=== PATIENT | female | born 1950 ===

== ENCOUNTER 2017-02-09 17:10 | Emergency (ER) | payer MEDICARE ==
[2017-02-09 17:11] VITALS: BMI 35.5
[2017-02-09] MEDS ORDERED: Sodium Chloride 0.9% 1,000 ML IV ONE (18:00)
[2017-02-09 18:25] LABS: BASO % 0.5 % (0.0-2.0); EOS # 0.1 K/uL (0.0-0.7); EOS % 0.8 % (0.0-4.0); HEMATOCRIT 40.7 % (34.0-47.0); LYMPH # 2.8 K/uL (1.0-4.3); LYMPH % 32.8 % (20.0-40.0); MEAN CELL VOLUME 87.7 fL (81.0-99.0); MEAN CORPUSCULAR HEMOGLOBIN 28.8 pg (27.0-31.0); MEAN CORPUSCULAR HGB CONC 32.8 g/dL (33.0-37.0); MONO # 0.6 K/uL (0.0-0.8); MONO % 7.4 % (0.0-10.0); NRBC % 0.1 % (0.0-2.0); RED CELL DISTRIBUTION WIDTH 13.1 % (11.5-14.5); WHITE BLOOD COUNT 8.5 K/uL (4.8-10.8)
--- NOTE | 2017-02-09 18:27 | C.PDOC ---
History Of Present Illness 66 year old female, with a history of HTN and DM, presents to the emergency room with complaints of nausea and high blood sugar for the last 5 days. Patient 's sugar was in the 300s at home. pt reports she has had a dry cough "for a while" Patient denies fever, chills, nausea, vomiting, or any other complaints. Time Seen by Provider: 02/09/17 17:56 Chief Complaint (Nursing): GI Problem History Per: Patient History/Exam Limitations: no limitations Onset/Duration Of Symptoms: Days (5) Current Symptoms Are (Timing): Still Present Severity: Mild Recent travel outside of the [place]: No Past Medical History Reviewed: Historical Data, Nursing Documentation, Vital Signs Vital Signs: Last Vital Signs Temp 97.6 F 02/09/17 20:25 Pulse 74 02/09/17 20:25 Resp 20 02/09/17 20:25 BP 106/70 02/09/17 20:25 Pulse Ox 98 02/09/17 20:25 - Medical History PMH: Bipolar Disorder, Depression, Diabetes, HTN, Hypercholesterolemia Denies: Chronic Kidney Disease - [facility] Procedures CLOSED ENDOSCOPIC BIOPSY OF LARGE INTESTINE (01/27/14) Family History: States: Unknown Family Hx - Social History Hx Tobacco Use: No Hx Alcohol Use: No Hx Substance Use: No - Immunization History Hx Tetanus Toxoid Vaccination: No Hx Influenza Vaccination: No Hx Pneumococcal Vaccination: No Review Of Systems Except As Marked, All Systems Reviewed And Found Negative. Constitutional: Positive for: Other (High blood sugar (in the 300s)). Negative for: Fever, Chills Gastrointestinal: Positive for: Nausea. Negative for: Vomiting, Diarrhea Physical Exam - Physical Exam Appears: Non-toxic, Other (Morbidly obese) Skin: Warm, Dry, No Rash Head: Atraumatic, Normacephalic Eye(s): bilateral: Normal Inspection Oral Mucosa: Moist Cardiovascular: Rhythm Regular Respiratory: Normal Breath Sounds, No Rales, No Rhonchi, No Wheezing Gastrointestinal/Abdominal: Soft, No Tenderness, No Guarding, No Rebound Extremity: Normal ROM, No Tenderness Neurological/Psych: Oriented x3, Normal Speech, Normal Cognition Gait: Steady ED Course And Treatment - Laboratory Results Result Diagrams: 02/09/17 18:17 02/09/17 18:17 O2 Sat by Pulse Oximetry: 100 Medical Decision Making Medical Decision Making: r/o dka - r/o underlying etiology of eleevated bgm - r/o infection Plan: -- EKG -- CXR -- Labs -- Zofran 750 cxr ?opacity to left lower side, poor study. will d/c with levaquin to cover urine as well. pt states feels better for d/c. abd soft no ttp notified about incidental elevated lfts. no abdominal pain Disposition - Disposition Disposition: HOSPITALIZED Disposition Time: 19:52 Condition: STABLE Additional Instructions: please follow up with your doctor. return to er with worsening symptoms or concerns. Prescriptions: levoFLOXacin [Levaquin] 750 mg PO DAILY #7 tab Instructions: Urinary Tract Infection in Women (ED), Diabetic Hyperglycemia (ED ) - Clinical Impression Clinical Impression: Hyperglycemia, Nausea & vomiting, UTI (urinary tract infection) - Scribe Statement The provider has reviewed the documentation as recorded by the Scribgeorgina Huerta All medical record entries made by the Johnibgeorgina were at my direction and personally dictated by me. I have reviewed the chart and agree that the record accurately reflects my personal performance of the history, physical exam, medical decision making, and the department course for this patient. I have also personally directed, reviewed, and agree with the discharge instructions and disposition.
[2017-02-09 18:44] LABS: CHLORIDE 98 mmol/L (98-107)
[2017-02-09 18:45] LABS: POTASSIUM 4.4 mmol/L (3.6-5.2); SODIUM 137 mmol/L (132-148)
[2017-02-09 18:46] LABS: INR 1.1
[2017-02-09 18:47] LABS: ALB/GLOB RATIO 1.2 (1.0-2.1); ALKALINE PHOSPHATASE 67 U/L (38-126); AST/SGOT 63 U/L (14-36); BILIRUBIN,TOTAL 0.7 mg/dL (0.2-1.3); BLOOD UREA NITROGEN 22 mg/dL (7-17); CARBON DIOXIDE 21 mmol/L (22-30); GFR AFRICAN-AMERICAN > 60; TOTAL PROTEIN 8.4 g/dL (6.3-8.3)
[2017-02-09 18:48] LABS: ALT/SGPT 63 U/L (9-52); CALCIUM 10.2 mg/dl (8.6-10.4); GLUCOSE,RANDOM 286 mg/dL (65-105)
[2017-02-09 19:34] LABS: RBC URINE 5 /hpf (0-3); URINE BACTERIA FEW (<OCC); URINE BILIRUBIN NEGATIVE (NEGATIVE); URINE BLOOD NEGATIVE (NEGATIVE); URINE COLOR Yellow (YELLOW); URINE GLUCOSE (UA) 2+ mg/dL (Normal); URINE KETONE TRACE mg/dL (NEGATIVE); URINE LEUKOCYTE ESTERASE 1+ Leu/uL (Negative); URINE PROTEIN NEGATIVE (NEGATIVE); URINE UROBILINOGEN NORMAL mg/dL (0.2-1.0); WBC URINE 9 /hpf (0-5)
[2017-02-09 20:25] VITALS: BP 106/70; PULSE 74; RESP 20; TEMP 97.6
--- NOTE | 2017-02-10 08:03 | RAD ---
PROCEDURE: CHEST RADIOGRAPH, 1 VIEW HISTORY: Abdominal pain COMPARISON: None available. FINDINGS: LUNGS: Mild venous congestion. Patchy left basilar airspace opacity. PLEURA: No pneumothorax or pleural fluid seen. CARDIOVASCULAR: Normal. OSSEOUS STRUCTURES: No significant abnormalities. VISUALIZED UPPER ABDOMEN: Normal. OTHER FINDINGS: None. IMPRESSION: Mild venous congestion. Patchy left basilar airspace opacity.
[2017-02-12 07:34] VITALS: O2SAT 100
== END 2017-02-09 20:25 | disposition short-term general hospital (02) ==
LOC: C.ER 17:10
DX: N39.0 Urinary tract infection, site not specified (principal); E11.65 Type 2 diabetes mellitus with hyperglycemia
CPT/HCPCS: 71010; 80053; 81001; 82948; 83690; 84484; 85025; 85610; 85730; 96361; 96374; 99284; J2405; J7040

== ENCOUNTER 2017-03-06 17:45 | Emergency (ER) | payer MEDICARE ==
[2017-03-06 17:45] VITALS: BMI 35.5
[2017-03-06] MEDS ORDERED: Sodium Chloride 0.9% 1,000 ML IV ONE (20:26)
[2017-03-06 20:30] LABS: BASO % 0.3 % (0.0-2.0); EOS # 0.1 K/uL (0.0-0.7); HEMATOCRIT 39.3 % (34.0-47.0); LYMPH # 2.5 K/uL (1.0-4.3); LYMPH % 38.2 % (20.0-40.0); MEAN CELL VOLUME 89.6 fL (81.0-99.0); MEAN CORPUSCULAR HEMOGLOBIN 28.3 pg (27.0-31.0); MEAN CORPUSCULAR HGB CONC 31.6 g/dL (33.0-37.0); MEAN PLATELET VOLUME 9.2 fL (7.2-11.7); MONO # 0.7 K/uL (0.0-0.8); MONO % 10.3 % (0.0-10.0); NRBC % 0.1 % (0.0-2.0); WHITE BLOOD COUNT 6.7 K/uL (4.8-10.8)
[2017-03-06 20:51] LABS: RBC URINE 83 /hpf (0-3); URINE BACTERIA OCC (<OCC); URINE BILIRUBIN NEGATIVE (NEGATIVE); URINE BLOOD 2+ (NEGATIVE); URINE COLOR Yellow (YELLOW); URINE GLUCOSE (UA) 3+ mg/dL (Normal); URINE KETONE 1+ mg/dL (NEGATIVE); URINE LEUKOCYTE ESTERASE TRACE Leu/uL (Negative); URINE PROTEIN 1+ mg/dL (NEGATIVE); URINE UROBILINOGEN NORMAL mg/dL (0.2-1.0); WBC URINE 10 /hpf (0-5)
[2017-03-06 21:01] LABS: CHLORIDE 103 mmol/L (98-107); POTASSIUM 3.9 mmol/L (3.6-5.2); SODIUM 138 mmol/L (132-148)
[2017-03-06 21:04] LABS: ALB/GLOB RATIO 1.2 (1.0-2.1); ALKALINE PHOSPHATASE 73 U/L (38-126); ALT/SGPT 37 U/L (9-52); AST/SGOT 44 U/L (14-36); BILIRUBIN,TOTAL 0.4 mg/dL (0.2-1.3); BLOOD UREA NITROGEN 12 mg/dL (7-17); CALCIUM 9.2 mg/dl (8.6-10.4); CARBON DIOXIDE 19 mmol/L (22-30); GFR AFRICAN-AMERICAN > 60; GLUCOSE,RANDOM 288 mg/dL (65-105); TOTAL PROTEIN 7.8 g/dL (6.3-8.3)
--- NOTE | 2017-03-06 22:04 | C.PDOC ---
Time Seen by Provider: 03/06/17 20:18 Chief Complaint (Nursing): High Blood Sugar History Per: Patient Onset/Duration Of Symptoms: Days (1) Current Symptoms Are (Timing): Still Present Severity: Moderate Current Diabetic Medications: Oral Medication Causative (Exacerbating) Factor(s): Missed Taking Medication (Ran out of her Glipizide yesterday) Associated Infectious Symptoms: Urinary Frequency Treatment Prior To Provider Evaluation: Accucheck Additional History Per: Prior Records Past Medical History Reviewed: Historical Data, Nursing Documentation, Vital Signs Vital Signs: Last Vital Signs Temp 97.9 F 03/06/17 18:01 Pulse 110 H 03/06/17 18:01 Resp 18 03/06/17 18:01 BP 153/89 H 03/06/17 18:01 Pulse Ox 96 03/06/17 18:01 - Medical History PMH: Bipolar Disorder, Depression, Diabetes, HTN, Hypercholesterolemia - [facility] Procedures CLOSED ENDOSCOPIC BIOPSY OF LARGE INTESTINE (01/27/14) Family History: States: Unknown Family Hx - Social History Hx Tobacco Use: No Hx Alcohol Use: No Hx Substance Use: No - Immunization History Hx Tetanus Toxoid Vaccination: No Hx Influenza Vaccination: No Hx Pneumococcal Vaccination: No Review Of Systems Except As Marked, All Systems Reviewed And Found Negative. Constitutional: Negative for: Fever Cardiovascular: Negative for: Chest Pain Respiratory: Negative for: Shortness of Breath Gastrointestinal: Negative for: Vomiting, Abdominal Pain, Diarrhea Genitourinary: Negative for: Dysuria Musculoskeletal: Negative for: Neck Pain Skin: Negative for: Rash Neurological: Negative for: Weakness, Numbness, Seizures, Altered Mental Status Physical Exam - Physical Exam Appears: Non-toxic, No Acute Distress Skin: Normal Color, Warm, Dry, No Rash Head: Atraumatic, Normacephalic Eye(s): bilateral: PERRL, EOMI Neck: Normal ROM, Supple Cardiovascular: Rhythm Regular Respiratory: Normal Breath Sounds, No Accessory Muscle Use Gastrointestinal/Abdominal: Soft, No Tenderness Back: No CVA Tenderness Extremity: Normal ROM Neurological/Psych: Oriented x3, Normal Motor, Normal Sensation ED Course And Treatment - Laboratory Results Result Diagrams: 03/06/17 20:23 03/06/17 20:23 O2 Sat by Pulse Oximetry: 96 Pulse Ox Interpretation: Normal Progress - Interventions Interventions:: Observation, Intravenous fluid - Data Reviewed Data Reviewed: Lab, Old records - Patient Status Patient status: Mostly improved - Continuity of Care Discussed patient case with:: Patient, Family-HIPPA compliant, ED Nurse - Patient Plan Patient Plan: Discharge, F/U with PCP, Continue present meds Disposition Counseled Patient/Family Regarding: Studies Performed, Diagnosis, Need For Followup, Rx Given - Disposition Referrals: Tay Menendez MD [Non-Staff] - Disposition: HOME/ ROUTINE Disposition Time: 22:04 Condition: IMPROVED Additional Instructions: Follow up with your doctor for further evaluation and treatment. Return to the ER if you develop worsening of symptoms or if you have any other concerns. Prescriptions: Glipizide [Glipizide ER] 5 mg PO DAILY #30 ter Instructions: Diabetes Mellitus Type 2 in Adults (ED) Print Language: ENGLISH - Clinical Impression Clinical Impression: Uncontrolled diabetes mellitus
[2017-03-06 22:24] VITALS: BP 144/99; PULSE 88; RESP 20; TEMP 97.6; O2SAT 98
== END 2017-03-06 22:24 | disposition home or self-care (01) ==
LOC: C.ER 17:45
DX: E11.65 Type 2 diabetes mellitus with hyperglycemia (principal); Z79.84 Long term (current) use of oral hypoglycemic drugs
CPT/HCPCS: 80053; 81001; 82948; 85025; 96360; 99285; J7040

== ENCOUNTER 2017-12-15 23:01 | Emergency (ER) | payer MEDICARE ==
[2017-12-15 23:01] VITALS: BMI 35.5
[2017-12-16] MEDS ORDERED: Sodium Chloride 0.9% 1,000 ML IV ONE (00:51)
--- NOTE | 2017-12-16 00:57 | C.PDOC ---
History Of Present Illness 67 y/o female presents to the emergency department complaining of severe nausea and generalized weakness since 8pm. Also reports cough for 1 month. Checked blood sugar at home and states it was okay. Otherwise denies any chest pain, shortness of breath, fevers, chills, diarrhea, change in bowel movements. Time Seen by Provider: 12/15/17 23:22 Chief Complaint (Nursing): GI Problem History Per: Patient History/Exam Limitations: no limitations Past Medical History Reviewed: Historical Data, Nursing Documentation, Vital Signs Vital Signs: Last Vital Signs Temp 97.5 F L 12/16/17 05:25 Pulse 85 12/16/17 05:25 Resp 19 12/16/17 05:25 BP 124/85 12/16/17 05:25 Pulse Ox 98 12/16/17 05:25 - Medical History PMH: Bipolar Disorder, Depression, Diabetes, HTN, Hypercholesterolemia Denies: Chronic Kidney Disease - [facility] Procedures CLOSED ENDOSCOPIC BIOPSY OF LARGE INTESTINE (01/27/14) Family History: States: Unknown Family Hx - Social History Hx Tobacco Use: No Hx Alcohol Use: No Hx Substance Use: No - Immunization History Hx Tetanus Toxoid Vaccination: No Hx Influenza Vaccination: Yes Hx Pneumococcal Vaccination: Yes Review Of Systems Except As Marked, All Systems Reviewed And Found Negative. Constitutional: Positive for: Weakness (generalized). Negative for: Fever, Chills, Malaise, Weight loss Eyes: Negative for: Pain, Vision Change ENT: Negative for: Ear Pain, Ear Discharge, Nose Congestion, Mouth Pain Cardiovascular: Negative for: Chest Pain, Palpitations, Orthopnea, Edema Respiratory: Positive for: Cough, SOB with Excertion. Negative for: Shortness of Breath Gastrointestinal: Positive for: Nausea. Negative for: Diarrhea, Constipation, Melena Genitourinary: Negative for: Dysuria, Frequency, Hematuria Musculoskeletal: Negative for: Neck Pain, Shoulder Pain, Arm Pain Skin: Negative for: Rash Neurological: Negative for: Weakness Psych: Negative for: Anxiety, Depression Physical Exam - Physical Exam Appears: Non-toxic, No Acute Distress Skin: Normal Color, Warm, Dry Head: Atraumatic, Normacephalic Eye(s): bilateral: Normal Inspection, PERRL, EOMI Ear(s): Bilateral: Normal Nose: Normal Oral Mucosa: Moist Tongue: Normal Appearing Lips: Normal Appearing Neck: Normal ROM, Supple Chest: Symmetrical Cardiovascular: Rhythm Regular, No Murmur Respiratory: Normal Breath Sounds, No Accessory Muscle Use, No Rhonchi, No Wheezing Gastrointestinal/Abdominal: Soft, No Tenderness, No Distention Back: Normal Inspection, CVA Tenderness, Vertebral Tenderness Extremity: Bilateral: Atraumatic, No Pedal Edema, Normal Color And Temperature Pulses: Left Radial: Normal, Right Radial: Normal Neurological/Psych: Oriented x3, Normal Speech, Normal Cranial Nerves, 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 Vent rate: 84 bpm. WA interval: 158 ms. QRS duration: 90 ms. QT/QTc: 390/460 ms. P-R-T axes: 38 -10 45 O2 Sat by Pulse Oximetry: 100 (RA) Pulse Ox Interpretation: Normal - Radiology CXR: Interpreted by Me, Viewed By Me CXR Interpretation: Yes: Cardiomegaly, Other (mild pulmonary congestion, with retrocardiac opacity) - CT Scan/US CT Head Other Rad Studies (CT/US): Read By Radiologist, Radiology Report Reviewed CT/US Interpretation: FINDINGS: Brain: Puro-ul-wjfwcklb atrophy. No intracranial hemorrhage. No mass. Minimal decreased. attenuation within periventricular white matter. No definite edema. Ventricles: No hydrocephalus. Bones/joints: No acute fracture. Soft tissues: Unremarkable. Sinuses: Postsurgical changes. Extensive mucosal thickening/inspissated mucous of LEFT. maxillary sinus. Scattered minimal mucosal thickening of remaining sinuses. Mastoid air cells: No mastoid effusion. Orbits: Unremarkable as visualized. IMPRESSION: 1. Nonspecific white matter changes. Acute infarction may be CT occult within first 24 hours. If a. focal deficit persists, consider followup CT or MRI for further evaluation. 2. Incidental/non-acute findings are described above. Thank you for allowing us to participate in the care of your patient. Dictated and Authenticated by: Sanjay Morgan MD. 12/16/2017 3:02 AM Eastern Time ([place] & [place]) Medical Decision Making Medical Decision Making: Prior records reviewed: Last seen in the ED on 03/06/17 for complaint of high sugar. At that time blood work was normal and patient was discharged home. In November of last year patient was seen for weakness, and discharged home. Time: 00:40 Initial Plan: * EKG * HCG, qualitative urine * Urinalysis * Urine culture * CMP * Pro-BNP * Lactic acid * Lipase * Troponin I * Valproic acid * CBC * D dimer * PTT * Prothrombin time * Influenza serology * Accucheck * Duoneb 3 ml INH x3 * IV fluids * Reglan 10 mg IV * Toradol 15 mg IV * Chest x-ray * CT Head W/O contrast Labs reviewed: CBC is unremarkable. Valproic acid is low therapeutic. D dimer negative. Troponin negative. BNP is 25. 2:45 Will give Rocephin and Azithromycin for respiratory infection. ct head neg. no objective findings on physical exam for a stroke or other neurological problem. nurse saw pt walk to bathroom with gait in tact. atypical pneumonia on cxr. pt tolerating po. unremarkable vital signs. labs reviewed. will send pt home with po abx. Disposition Counseled Patient/Family Regarding: Diagnosis - Disposition Referrals: Tay Menendez MD [Non-Staff] - Disposition: HOME/ ROUTINE Disposition Time: 05:15 Condition: GOOD Additional Instructions: return to ed if symptoms worsen / otherwise follow up with PMD Prescriptions: Azithromycin 250 mg PO DAILY 4 Days #4 tablet Doxycycline Monohydrate 100 mg PO BID 7 Days #14 tablet Instructions: Pneumonia in Adults, Pneumonia, Adult (DC), Community-Acquired Pneumonia, Adult (DC) Forms: [employer] (Lithuanian) Print Language: HEBREW - Clinical Impression Clinical Impression: Pneumonia - Scribe Statement The provider has reviewed the documentation as recorded by the Kathryn Jackson Provider Attestation: All medical record entries made by the Kathryn were at my direction and personally dictated by me. I have reviewed the chart and agree that the record accurately reflects my personal performance of the history, physical exam, medical decision making, and the department course for this patient. I have also personally directed, reviewed, and agree with the discharge instructions and disposition.
[2017-12-16 01:23] LABS: BASO % 0.4 % (0.0-2.0); EOS % 0.5 % (0.0-4.0); HEMOGLOBIN 13.1 g/dL (11.0-16.0); LYMPH # 1.8 K/uL (1.0-4.3); LYMPH % 24.4 % (20.0-40.0); MEAN CELL VOLUME 88.5 fL (81.0-99.0); MEAN CORPUSCULAR HEMOGLOBIN 29.3 pg (27.0-31.0); MEAN CORPUSCULAR HGB CONC 33.1 g/dL (33.0-37.0); MEAN PLATELET VOLUME 7.7 fL (7.2-11.7); MONO # 0.6 K/uL (0.0-0.8); MONO % 7.6 % (0.0-10.0); NEUT % 67.1 % (50.0-75.0); RBC 4.48 Mil/uL (3.80-5.20); RED CELL DISTRIBUTION WIDTH 13.5 % (11.5-14.5); WHITE BLOOD COUNT 7.5 K/uL (4.8-10.8)
[2017-12-16] MEDS ORDERED: Sodium Chloride 0.9% 1,000 ML ONE (01:34)
[2017-12-16 01:42] LABS: ALB/GLOB RATIO 1.1 (1.0-2.1); ALBUMIN 4.2 g/dL (3.5-5.0); ALT/SGPT 29 U/L (9-52); AST/SGOT 24 U/L (14-36); BLOOD UREA NITROGEN 12 mg/dL (7-17); CALCIUM 8.4 mg/dl (8.6-10.4); GFR AFRICAN-AMERICAN > 60; GFR NON-AFRICAN AMERICAN > 60; LIPASE 127 U/L (23-300)
[2017-12-16 01:43] LABS: INR 1.1; PARTIAL THROMBOPLASTIN TIME 45 SECONDS (21-34); PROTHROMBIN TIME 12.9 SECONDS (9.7-12.2)
[2017-12-16 01:50] LABS: D DIMER < 200 ng/mlDDU (0-243)
[2017-12-16 01:54] LABS: B-TYPE NATRIURETIC PEPTIDE 25.6 pg/mL (0-900)
[2017-12-16 01:59] LABS: SQUAMOUS EPITHIAL 1 /hpf (0-5); URINE BACTERIA RARE (<OCC); URINE BILIRUBIN NEGATIVE (NEGATIVE); URINE BLOOD NEGATIVE (NEGATIVE); URINE CLARITY Hazy (Clear); URINE COLOR Red (YELLOW); URINE GLUCOSE (UA) NORMAL (Normal); URINE LEUKOCYTE ESTERASE 2+ Leu/uL (Negative); URINE PROTEIN NEGATIVE (NEGATIVE); URINE UROBILINOGEN NORMAL mg/dL (0.2-1.0)
[2017-12-16 02:01] LABS: HCG,QUALITATIVE URINE NEGATIVE (NEGATIVE)
[2017-12-16] MEDS ORDERED: Sodium Chloride 0.9% 1,000 ML IV SCH (02:30)
[2017-12-16] MEDS ORDERED: Azithromycin 500 MG in Sodium Chloride 0.9% 250 ML IVPB STA (02:46)
[2017-12-16] MEDS ORDERED: cefTRIAXone IV 1 gm in Dextros 50 ML IVPB ONE (03:02)
--- NOTE | 2017-12-16 03:02 | CT ---
EXAM: CT Head Without Intravenous Contrast CLINICAL HISTORY: 67 years old, female; Pain; Headache; Tension; Additional info: Code stroke TECHNIQUE: Axial computed tomography images of the head/brain without intravenous contrast. All CT scans at this facility use one or more dose reduction techniques, viz.: automated exposure control; ma/kV adjustment per patient size (including targeted exams where dose is matched to indication; i.e. head); or iterative reconstruction technique. Coronal and sagittal reformatted images were created and reviewed. COMPARISON: No relevant prior studies available. FINDINGS: Brain: Tqtj-ee-vssdodzd atrophy. No intracranial hemorrhage. No mass. Minimal decreased attenuation within periventricular white matter. No definite edema. Ventricles: No hydrocephalus. Bones/joints: No acute fracture. Soft tissues: Unremarkable. Sinuses: Postsurgical changes. Extensive mucosal thickening/inspissated mucous of LEFT maxillary sinus. Scattered minimal mucosal thickening of remaining sinuses. Mastoid air cells: No mastoid effusion. Orbits: Unremarkable as visualized. IMPRESSION: 1. Nonspecific white matter changes. Acute infarction may be CT occult within first 24 hours. If a focal deficit persists, consider followup CT or MRI for further evaluation. 2. Incidental/non-acute findings are described above.
[2017-12-16 06:36] VITALS: BP 124/85; PULSE 85; RESP 19; TEMP 97.5
[2017-12-16 07:37] VITALS: O2SAT 100
--- NOTE | 2017-12-16 08:36 | RAD ---
HISTORY: COMPARISON: 02/09/2017. TECHNIQUE: Chest PA and lateral FINDINGS: LINES AND TUBES: None. LUNG AND PLEURA: The lungs are well inflated and clear. HEART AND MEDIASTINUM: The heart is not enlarged. The hilar and mediastinal contours are within normal limits. SKELETAL STRUCTURES: The bony structures are within normal limits for the patient's age. VISUALIZED UPPER ABDOMEN: Normal. OTHER FINDINGS: None. IMPRESSION: No active pulmonary disease.
--- NOTE | 2017-12-17 23:27 | CARD ---
APPROVED REPORT EKG Measurement Heart [id number] <Conclusion> Normal sinus rhythm Cannot rule out Anterior infarct, age undetermined Abnormal ECG
== END 2017-12-16 05:50 | disposition home or self-care (01) ==
LOC: C.ER 23:01
DX: J18.9 Pneumonia, unspecified organism (principal)
CPT/HCPCS: 70450; 71046; 80053; 80164; 81001; 82948; 83605; 83690; 83880; 84484; 84703; 85025; 85378; 85610; 85730; 87086; 87804; 93005; 96365; 96367; 96375; 99285; J0456; J0696; J1885; J2765; J7040; J7050

== ENCOUNTER 2018-09-30 16:28 | Emergency (ER) | payer MEDICARE ==
[2018-09-30 16:28] VITALS: BMI 37.1
[2018-09-30 16:49] VITALS: BP 139/87; PULSE 101; RESP 15; TEMP 97.7; O2SAT 96
--- NOTE | 2018-09-30 17:57 | C.PDOC ---
History Of Present Illness 68 y/o female comes in after a fall last night. States she was getting out of bed when she fell to the floor and hurt her right lower extremity. Patient states pain spans from her right 5th digit to ankle region. Patient also complains of a sharp pain to her right knee. Time Seen by Provider: 09/30/18 16:39 Chief Complaint (Nursing): Lower Extremity Problem/Injury History Per: Patient History/Exam Limitations: no limitations Onset/Duration Of Symptoms: Hrs Current Symptoms Are (Timing): Still Present Past Medical History Reviewed: Historical Data, Nursing Documentation, Vital Signs Vital Signs: Last Vital Signs Temp 97.7 F 09/30/18 16:48 Pulse 101 H 09/30/18 16:48 Resp 15 09/30/18 16:48 BP 139/87 09/30/18 16:48 Pulse Ox 96 09/30/18 16:48 - Medical History PMH: Bipolar Disorder, Depression, Diabetes, HTN, Hypercholesterolemia Denies: Chronic Kidney Disease - [facility] Procedures CLOSED ENDOSCOPIC BIOPSY OF LARGE INTESTINE (01/27/14) Family History: States: No Known Family Hx - Social History Hx Tobacco Use: No Hx Alcohol Use: No Hx Substance Use: No - Immunization History Hx Tetanus Toxoid Vaccination: No Hx Influenza Vaccination: Yes Hx Pneumococcal Vaccination: Yes Review Of Systems Except As Marked, All Systems Reviewed And Found Negative. Musculoskeletal: Positive for: Foot Pain, Other (Knee pain) Physical Exam - Physical Exam Appears: Non-toxic, No Acute Distress Skin: Warm, Dry Head: Atraumatic, Normacephalic Eye(s): bilateral: Normal Inspection Oral Mucosa: Moist Neck: Supple Cardiovascular: Rhythm Regular, No Murmur Respiratory: Normal Breath Sounds, No Rales, No Rhonchi, No Wheezing Extremity: Tenderness (to right foot with swelling in dorsal aspect, no redness), No Calf Tenderness, Capillary Refill (less than 2 seconds), No Deformity, Other (Tenderness and mild swelling to right knee) Pulses: Right Dorsalis Pedis: Normal Neurological/Psych: Oriented x3, Normal Speech ED Course And Treatment O2 Sat by Pulse Oximetry: 96 (RA) Pulse Ox Interpretation: Normal Medical Decision Making Medical Decision Making: Impression: Contusion Plan: --Right foot XR --Right knee XR --Tylenol PO --Ultram PO xray of right knee and right foot - prel. read as no fx. Disposition Counseled Patient/Family Regarding: Studies Performed, Diagnosis, Need For Followup, Rx Given - Disposition Referrals: [facility] [Outside] Disposition: HOME/ ROUTINE Disposition Time: 17:55 Condition: STABLE Additional Instructions: follow up with your doctor within 2 days call to make an appointment take medications as prescribed return to ER if symptoms worsens or progress rest, ice, elevate Prescriptions: traMADol [Ultram] 50 mg PO TID PRN #12 tab PRN Reason: Pain, Moderate (4-7) Instructions: Contusion (DC) Forms: Gen Discharge Inst Dutch, [employer] (Dutch) Print Language: LAO - Clinical Impression Clinical Impression: Contusion - Scribe Statement The provider has reviewed the documentation as recorded by the Kathryn Lyons Provider Attestation: All medical record entries made by the Kathryn were at my direction and pe rsonally dictated by me. I have reviewed the chart and agree that the record accurately reflects my personal performance of the history, physical exam, medical decision making, and the department course for this patient. I have also personally directed, reviewed, and agree with the discharge instructions and disposition.
--- NOTE | 2018-10-01 08:51 | RAD ---
Date of service: 09/30/2018 PROCEDURE: Right Knee Radiographs. HISTORY: right knee pain COMPARISON: None. FINDINGS: BONES: No fracture or lytic lesion. Osseous hypertrophic changes/spurring noted JOINTS: Arthrosis JOINT EFFUSION: None. OTHER FINDINGS: Minimal Quadriceps insertional enthesophyte IMPRESSION: No fracture or lytic lesion. 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 Osteophytosis also extension into the femoral intercondylar fossa-can impinging on cruciate ligaments.
--- NOTE | 2018-10-01 09:03 | RAD ---
Date of service: 09/30/2018 PROCEDURE: Right Foot Radiographs. HISTORY: right foot pain COMPARISON: None. FINDINGS: BONES: No fracture appreciated. Probable benign bone island medial talus per series 1, image 1 JOINTS: Multifocal arthrosis: Distal interphalangeal joints, 1st metacarpal phalangeal joint-diffuse midfoot SOFT TISSUES: Normal. OTHER FINDINGS: Inferior calcaneal spur . [place]'s tendon insetional enesthesophyte. IMPRESSION: No fracture or lytic lesion. Multifocal arthrosis as above. Inferior calcaneal spur . Ozzy's tendon insetional enesthesophyte.
== END 2018-09-30 19:44 | disposition home or self-care (01) ==
LOC: C.ER 16:28
DX: S80.01XA Contusion of right knee, initial encounter (principal); S90.31XA Contusion of right foot, initial encounter; W06.XXXA Fall from bed, initial encounter